=== PATIENT | male | born 1990 | race Two or more races ===

== ENCOUNTER 2020-06-09 00:59 | Emergency (ER) | payer OTHER ==
[~2020-06-09] VITALS: Ht 170.2 cm; Wt 80.3 kg
--- NOTE | 2020-06-09 01:05 | NUR ---
[employer] for [facility]k, pt denies any complaints. informed [employer] with hx HD and htn, pt placed on monitor, noted with high blood pressure, -dizziness, -n/v, pending er doctor acacia
[2020-06-09] MEDS ORDERED: hydrALAZINE HCL IV 20 MG VIAL ONE ×2 (01:18→02:20)
[2020-06-09] MEDS ORDERED: FUROSEMIDE 40 MG/4 ML VIAL ONE (01:18)
[2020-06-09 01:22] LABS: BASOPHILS # (AUTO) 0.2 /CMM (0.0-0.2); BASOPHILS % (AUTO) 1.1 % (0.0-2.0); EOSINOPHILS % (AUTO) 3.8 % (0.0-6.0); HEMATOCRIT 30 % (39-51); HEMOGLOBIN 9.7 g/dL (13.5-17.5); LYMPHOCYTES # (AUTO) 1.4 /CMM (0.8-4.8); LYMPHOCYTES % (AUTO) 9.1 % (20.0-44.0); MEAN CORPUSCULAR HGB CONC 32 g/dl (31.0-36.0); MEAN CORPUSCULAR VOLUME 84 fL (80-96); MONOCYTES # (AUTO) 1.1 /CMM (0.1-1.30); MONOCYTES % (AUTO) 7.1 % (2.0-12.0); NEUTROPHILS % (AUTO) 78.9 % (43.0-81.0); PLATELET COUNT (AUTO) 393 /CMM (150-450); RED BLOOD CELL COUNT(AUTO) 3.55 MIL/uL (4.5-6.0); WHITE BLOOD COUNT (AUTO) 15.2 K/uL (4.3-11.0)
--- NOTE | 2020-06-09 01:29 | NUR ---
xray at bedside
[2020-06-09] MEDS ORDERED: hydrALAZINE HCL IV 20 MG VIAL IV ONE ×2 (01:30→02:30)
[2020-06-09] MEDS ORDERED: FUROSEMIDE 40 MG/4 ML VIAL IV ONE (01:30)
[2020-06-09 01:31] LABS: CALCIUM, SERUM 8.8 mg/dL (8.5-10.1); POTASSIUM 3.1 mmol/L (3.5-5.1)
[2020-06-09 01:43] LABS: ALBUMIN 3.4 g/dL (3.4-5.0); BILIRUBIN,DIRECT 0.2 mg/dL (0.0-0.2); BILIRUBIN,TOTAL 0.8 mg/dL (0.2-1.0); TOTAL PROTEIN, SERUM 8.2 g/dL (6.4-8.2)
[2020-06-09 01:44] LABS: CREATININE 7.9 mg/dL (0.6-1.3)
[2020-06-09] MEDS ORDERED: CEFTRIAXONE 1GM BAG (ER ONLY) 1 GM/50 ML PIGGYBACK IV ONE (02:30)
[2020-06-09] MEDS ORDERED: AZITHROMYCIN 500 MG in IV D5W 250 ML IV ONE (02:30)
[2020-06-09] MEDS ORDERED: CEFTRIAXONE 1GM BAG (ER ONLY) 50 ML IV ONE (02:39)
[2020-06-09] MEDS ORDERED: AZITHROMYCIN 500 MG VIAL ONE (02:40)
[2020-06-09 02:50] LABS: APPEARANCE,URINE CLEAR (CLEAR); BILIRUBIN,URINE NEGATIVE (NEGATIVE); BLOOD, URINE SMALL Ery/uL (NEGATIVE); COLOR,URINE YELLOW (YELLOW); KETONES,URINE NEGATIVE (NEGATIVE); LEUKOCYTE ESTERASE ,URINE NEGATIVE (NEGATIVE); NITRITE, URINE NEGATIVE (NEGATIVE); PH,URINE 6.5 (5.0-8.0); PROTEIN,URINE >=300 mg/dl (NEGATIVE); UGLUCOSE NEGATIVE (NEGATIVE); UROBILINOGEN,URINE 0.2 EU/dL (0.2)
[2020-06-09] MEDS ORDERED: NITROPRUSSIDE SODIUM 50 MG/2 ML VIAL IV ONE (03:25)
[2020-06-09] MEDS ORDERED: NITROPRUSSIDE SODIUM 50 MG in IV D5W 250 ML IV PRN (03:30)
--- NOTE | 2020-06-09 03:35 | NUR ---
ADDENDUM: Intravenous End Time Documentation: Nitroprusside drip (50 mg in IV D5 water 250 mL) start time:0335 AM End time: 0550 AM Port # 1
--- NOTE | 2020-06-09 03:36 | NUR ---
pt released from [employer] custody.
--- NOTE | 2020-06-09 03:55 | NUR ---
nitropress titrated up to effect; at 1mcg/kg/min at this time.
[2020-06-09] MEDS ORDERED: ONDANSETRON HCL/PF 4 MG/2 ML VIAL ONE (04:05)
--- NOTE | 2020-06-09 04:06 | NUR ---
nitropress incresed to 2mcg/kg/min
[2020-06-09 04:16] VITALS: BP 185/125
--- NOTE | 2020-06-09 04:27 | NUR ---
pt to vq scan; held nitropress per dr. jackman
[2020-06-09] MEDS ORDERED: ONDANSETRON HCL/PF - ER 4 MG/2 ML VIAL IV ONE (04:30)
--- NOTE | 2020-06-09 05:02 | NUR ---
NM: LUNG V/Q WAS COMPLETED. TECH:RB
--- NOTE | 2020-06-09 05:43 | NUR ---
IV removed. Catheter intact and site benign. Pressure and 4x4 applied to site. No bleeding noted.
--- NOTE | 2020-06-09 05:50 | NUR ---
Patient does not wish to proceed with medical care recommended by Dr. Dennis. Patient given information related to possible complications, up to and including , which could occur as a result of leaving the hospital at this time. Patient verbalizes understanding of risks involved due to leaving against medical advice. Patient has signed AMA form.
== END 2020-06-09 05:51 | disposition left against medical advice (07) ==
LOC: ER 01:01
DX: I16.1 Hypertensive emergency (principal); I12.0 Hypertensive chronic kidney disease with stage 5 chronic kidney disease or end stage renal disease; N18.6 End stage renal disease; Z99.2 Dependence on renal dialysis; F19.10 Other psychoactive substance abuse, uncomplicated; R00.0 Tachycardia, unspecified; D72.829 Elevated white blood cell count, unspecified; R05 Cough
CPT/HCPCS: 36415; 71045; 78582; 80048; 80076; 80305; 81001; 83605; 83880; 84484; 85025; 85730; 87040 ×2; 87076; 87426; 93005; 96365; 96367; 96368; 96375; 96376; 99291; A9540; J0360 ×2; J0456; J0696; J1940; J2405 ×2; 81000-TC; J7060